=== PATIENT | male | born 1940 | race Caucasian/White ===

== ENCOUNTER 2016-12-13 13:29 | Outpatient (CLI) | payer MEDICARE, BC ==
[2016-01-26 10:30] VITALS: O2SAT 98
== END 2016-12-13 13:30 | disposition home or self-care (01) | DRG 556 ==
LOC: CONVCARE 13:29
PROVIDERS: ATTEND Orthopaedic Surgery
DX: M25.571 Pain in right ankle and joints of right foot (principal); M25.471 Effusion, right ankle
CPT/HCPCS: 73600

== ENCOUNTER 2019-03-28 08:25 | Day surgery (SDC) | payer MEDICARE, BC ==
[~2019-03-28 08:25] MED LIST: LIDOCAINE HCL 1% MPF 30 SOL ONE; PROPOFOL 500 MG/50 ML EMU IV ONE
[2019-03-28 10:13] VITALS: RESP 16
[2019-03-28 10:27] VITALS: BP 138/73; PULSE 74; TEMP 97.8; O2SAT 98
== END 2019-03-28 10:40 | disposition home or self-care (01) | DRG 951 ==
LOC: SURG 08:25
PROVIDERS: ATTEND Surgery
DX: Z12.11 Encounter for screening for malignant neoplasm of colon (principal); K57.32 Diverticulitis of large intestine without perforation or abscess without bleeding; Z86.010 Personal history of colon polyps
CPT/HCPCS: J2001; J2704